=== PATIENT | female | born 1970 ===

== ENCOUNTER 2021-04-20 14:06 | Emergency (ER) | payer BC, MEDICAID ==
--- NOTE | 2021-04-20 14:25 | PCM.EKG ---
#1 Interpretation EKG Date: 04/20/21 Time: 14:12 Rhythm: NSR Rate (Beats/Min): 84 [place]: Normal P-Wave: Present QRS: Normal ST-T: Normal QT: Normal Comparison: NA - No Prior EKG EKG Interpretation Comments: SInus Rhythm
[2021-04-20] MEDS ORDERED: Aspirin 81 MG Tab.Chew PO ONE (14:34)
[2021-04-20] MEDS ORDERED: Morphine 4 MG/ML Syringe IVPUSH ONE ×2 (14:34→18:41)
[2021-04-20] MEDS ORDERED: Sodium Chloride 0.9% 1,000 ML IV ONE (14:34)
--- NOTE | 2021-04-20 14:55 | EDM.PDOC ---
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 Patient states that she has been having chest pain and shortness of breath off and on and states that today it has been constant now for a few hours. Patient states that she also has had a few episodes of what she believes is vaginal bleeding but she states that this only occurs with urination so she has a hard time deciphering where the bleeding is coming from. Patient states that she is confused as she has a hysterectomy. Patient denies placing objects into her vaginal vault or heavy intercourse and states she has not had anything that would have caused vaginal bleeding. Patient states that she is on prednisone daily and will be out of her prescription soon for her rheumatoid arthritis. Patient states her rheumatoid arthritis has affected her vocal cords and she occasionally has to go in and get the surgically adjusted in order to protect her airway according to patient. Patient states that her chest pain and shortness of breath have been more progressive over the past 2 weeks and states that she is now having a difficult time walking from one room to the next without feeling short of breath. Patient states that this is new in the past 2 weeks and prior to this she was not having this issue. Patient denies fever, chills, or cough. Denies headache, neck stiff ness, change in vision, syncope, or near syncope. Denies nausea, vomiting, abdominal pain, diarrhea, constipation, or dysuria. Has not noted any blood in stool. Patient has been eating and drinking appropriately. Review of systems: As per history of present illness and below otherwise all systems reviewed and negative. Past medical history: As per history of present illness and as reviewed below otherwise noncontributory. Surgical history: As per history of present illness and as reviewed below otherwise noncontributory. Social history: See social history for further information Family history: As per history of present illness and as reviewed below otherwise noncontributory. Physical exam: General: Patient is alert, oriented, and in no acute distress. Patient laying comfortably on exam table. Vitals stable and reviewed by me. HEENT: Atraumatic, normocephalic, pupils equal and reactive bilaterally, negative for conjunctival pallor or scleral icterus, mucous membranes moist, TMs normal bilaterally, throat clear, neck supple, nontender, trachea midline. No drooling or trismus noted. No meningeal signs. No hot potato voice noted. Lungs: Mild wheezing of bilateral lower lung ashley to auscultation, breath sounds equal bilaterally, chest nontender. Heart: S1S2, regular rate and rhythm without overt murmur Abdomen: Soft, nondistended, nontender. Negative for masses or hepatosplenomegaly. Negative for costovertebral tenderness. Pelvis: Stable nontender. Genitourinary: [employer] Business Developer at bedside Celine Talavera RN. External genitalia is grossly unremarkable. There is a moderate amount of white vaginal discharge in the vaginal vault. Cervical cuff intact without bleeding or pain. No blood noted in the vaginal vault. Rectal: Deferred. Skin: Intact, warm, dry. No lesions or rashes noted. Extremities: Atraumatic, negative for cords or calf pain. Neurovascular unremarkable. Neuro: Awake, alert, oriented. Cranial nerves II through XII unremarkable. Cerebellum unremarkable. Motor and sensory unremarkable throughout. Exam nonfocal. Notes: Patient is a 51-year-old female who presents emergency room today with concern of shortness of breath and chest pain that has come and go over the past 2 weeks but now has been constant for several hours, an episode of concern for vaginal versus blood in urine bleeding with a history of hysterectomy. Upon arrival to the ED, patient is vitally stable and well-appearing on exam. Will obtain cardiac evaluation. See Dr. Navas's dictation for specific EKG interpretation. However, normal sinus rhythm without STEMI Given that patient is still currently having chest pain, will give a dose of aspirin, nitro and morphine and reassess patient. Due to status of the emergency room, will have to wait to obtain a exam. CBC shows mild leukocytosis of 11.47, otherwise CBC is unremarkable. D-dimer is elevated at 0.63. Will obtain angiography of the chest. CMP mild derangements are unremarkable. Troponin negative. Lipase within normal limits. Urinalysis does show too numerous to count red blood cells with zero white blood cells. Negative leukocyte esterase with negative nitrite. Angiography of chest shows mild bilateral perihilar bronchial wall thickening suggesting bronchitis with no pneumonia identified. No pulmonary embolism identified. Nonacute additional findings as detailed above. All incidental findings of imaging today discussed with patient and the importance to have this followed up with a primary care provider. Patient does have an extensive history of smoking and continues to smoke, so will treat patient today with prednisone and azithromycin. exam shows no vaginal bleeding with intact cuff from hysterectomy. While obtaining exam, patient does have a significant amount of abdominal discomfort with giving positional changes. When discussing this with patient, she states that she has been having increased abdominal pain over the past 2 weeks but did not mention this on HPI as she states that she has had "so many things going on". Will obtain abdominal pelvic CT without contrast at this time. Abdominal pelvic CT scan without contrast shows no acute findings or CT correlate for abdominal pain definitively identified. Contrast opacification throughout the bilateral urinary tracts and bladder residual from earlier same day CT, limiting assessment for ureteral lithiasis. Upon reevaluation of patient, she has improvement of her symptoms with therapeutics given today in the emergency room. Strict return precautions thoroughly discussed with patient. Discussed importance for follow-up with a primary care provider and urologist. Voices understanding and is agreeable to plan of care. Denies any further questions or concerns at this time. Diagnostics: EKG, CBC, CMP, UA, Trop, Ddimer, Lipase, angiography of chest, abdominal pelvic CT without contrast Therapeutics: NS, Nitro, ASA, Morphine Prescription: Azithromycin, prednisone Impression: Bronchitis Hematuria Plan: 1. Take medication as prescribed. You can alternate ibuprofen and Tylenol as directed for pain and discomfort. 2. Follow-up with a primary care provider and urologist as discussed. Return to the ED as needed and as discussed. Definitive disposition and diagnosis as appropriate pending reevaluation and review of above. chest Pain Score (Numeric/FACES): 4 - Related Data Allergies Allergy/AdvReac Type Severity Reaction Status Date / Time No Known Allergies Allergy Verified 04/20/21 14:15 Home Meds: Home Meds Azithromycin 250 mg PO DAILY 5 Days #6 tablet 04/20/21 [Rx] Escitalopram Oxalate [Lexapro] 04/20/21 [History] Furosemide [Lasix] 04/20/21 [History] Ibuprofen 04/20/21 [History] Omeprazole 04/20/21 [History] predniSONE [Prednisone] 04/20/21 [History] predniSONE [Prednisone] 20 mg PO DAILY 5 Days #5 tablet 04/20/21 [Rx] Past Medical History HEENT History: Reports: None Cardiovascular History: Reports: Hypertension Other Respiratory History: layrnx surgery Gastrointestinal History: Reports: None Genitourinary History: Reports: None MAGAZINE EDITOR History: Reports: None Musculoskeletal History: Reports: None Neurological History: Reports: None Psychiatric History: Reports: None Endocrine/Metabolic History: Reports: None Hematologic History: Reports: None Oncologic (Cancer) History: Reports: None Dermatologic History: Reports: None - Infectious Disease History Infectious Disease History: Reports: None - Past Surgical History Head Surgeries/Procedures: Reports: None Social & Family History - Family History Family Medical History: No Pertinent Family History - Tobacco Use Tobacco Use Status *Q: Current Every Day Tobacco User Years of Tobacco use: 33 Packs/Tins Daily: 0.5 - Caffeine Use Caffeine Use: Reports: None - Recreational Drug Use Recreational Drug Use: No ED ROS GENERAL - Review of Systems Review Of Systems: Comprehensive ROS is negative, except as noted in HPI. ED EXAM, GENERAL - Physical Exam Exam: See Below (see dictation) Course - Vital Signs Last Recorded V/S: Last Vital Signs Temp 97.4 F 04/20/21 14:12 Pulse 68 04/20/21 18:03 Resp 17 04/20/21 18:03 BP 174/108 H 04/20/21 18:03 Pulse Ox 95 04/20/21 18:03 - Orders/Labs/Meds Labs: Laboratory Tests 04/20/21 04/20/21 04/20/21 Range/Units 14:37 14:37 14:37 WBC 11.47 H (4.0-11.0) K/uL RBC 4.42 (4.30-5.90) M/uL Hgb 12.8 (12.0-16.0) g/dL Hct 39.4 (36.0-46.0) % MCV 89.1 (80.0-98.0) fL MCH 29.0 (27.0-32.0) pg MCHC 32.5 (31.0-37.0) g/dL RDW Std Deviation 47.4 (28.0-62.0) fl RDW Coeff of Juliette 14 (11.0-15.0) % Plt Count 314 (150-400) K/uL MPV 10.60 (7.40-12.00) fL Neut % (Auto) 44.9 L (48.0-80.0) % Lymph % (Auto) 44.5 H (16.0-40.0) % [place] % (Auto) 8.2 (0.0-15.0) % Eos % (Auto) 1.6 (0.0-7.0) % Baso % (Auto) 0.8 (0.0-1.5) % Neut # (Auto) 5.2 (1.4-5.7) K/uL Lymph # (Auto) 5.1 H (0.6-2.4) K/uL [place] # (Auto) 0.9 H (0.0-0.8) K/uL Eos # (Auto) 0.2 (0.0-0.7) K/uL Baso # (Auto) 0.1 (0.0-0.1) K/uL Nucleated RBC % 0.0 /100WBC Nucleated RBCs # 0 K/uL D-Dimer, Quantitative 0.63 H (0.0-0.50) mg/L FEU Sodium 140 (136-145) mmol/L Potassium 4.4 (3.5-5.1) mmol/L Chloride 104 (98-107) mmol/L Carbon Dioxide 28.5 (21.0-32.0) mmol/L BUN 18 (7.0-18.0) mg/dL Creatinine 0.8 (0.6-1.0) mg/dL Est Cr Clr Drug Dosing 84.99 mL/min Estimated GFR (MDRD) > 60.0 ml/min Glucose 113 H (74-106) mg/dL Calcium 8.5 (8.5-10.1) mg/dL Total Bilirubin 0.1 L (0.2-1.0) mg/dL AST 11 L (15-37) IU/L ALT 17 (14-63) IU/L Alkaline Phosphatase 108 (46-116) U/L Troponin I < 0.050 (0.000-0.056) ng/mL Total Protein 7.1 (6.4-8.2) g/dL Albumin 3.5 (3.4-5.0) g/dL Globulin 3.6 (2.6-4.0) g/dL Albumin/Globulin Ratio 1.0 (0.9-1.6) Lipase 106 (73-393) U/L Urine Color Urine Appearance Urine pH (5.0-8.0) Ur Specific [place] (1.001-1.035) Urine Protein (NEGATIVE) mg/dL Urine Glucose (UA) (NEGATIVE) mg/dL Urine Ketones (NEGATIVE) mg/dL Urine Occult Blood (NEGATIVE) Urine Nitrite (NEGATIVE) Urine Bilirubin (NEGATIVE) Urine Urobilinogen (<2.0) EU/dL Ur Leukocyte Esterase (NEGATIVE) Urine RBC (0-2/HPF) Urine WBC (0-5/HPF) Ur Epithelial Cells (NONE-FEW) Urine Bacteria (NEGATIVE) 04/20/21 Range/Units 16:08 WBC (4.0-11.0) K/uL RBC (4.30-5.90) M/uL Hgb (12.0-16.0) g/dL Hct (36.0-46.0) % MCV (80.0-98.0) fL MCH (27.0-32.0) pg MCHC (31.0-37.0) g/dL RDW Std Deviation (28.0-62.0) fl RDW Coeff of Juliette (11.0-15.0) % Plt Count (150-400) K/uL MPV (7.40-12.00) fL Neut % (Auto) (48.0-80.0) % Lymph % (Auto) (16.0-40.0) % [place] % (Auto) (0.0-15.0) % Eos % (Auto) (0.0-7.0) % Baso % (Auto) (0.0-1.5) % Neut # (Auto) (1.4-5.7) K/uL Lymph # (Auto) (0.6-2.4) K/uL [place] # (Auto) (0.0-0.8) K/uL Eos # (Auto) (0.0-0.7) K/uL Baso # (Auto) (0.0-0.1) K/uL Nucleated RBC % /100WBC Nucleated RBCs # K/uL D-Dimer, Quantitative (0.0-0.50) mg/L FEU Sodium (136-145) mmol/L Potassium (3.5-5.1) mmol/L Chloride (98-107) mmol/L Carbon Dioxide (21.0-32.0) mmol/L BUN (7.0-18.0) mg/dL Creatinine (0.6-1.0) mg/dL Est Cr Clr Drug Dosing mL/min Estimated GFR (MDRD) ml/min Glucose (74-106) mg/dL Calcium (8.5-10.1) mg/dL Total Bilirubin (0.2-1.0) mg/dL AST (15-37) IU/L ALT (14-63) IU/L Alkaline Phosphatase (46-116) U/L Troponin I (0.000-0.056) ng/mL Total Protein (6.4-8.2) g/dL Albumin (3.4-5.0) g/dL Globulin (2.6-4.0) g/dL Albumin/Globulin Ratio (0.9-1.6) Lipase (73-393) U/L Urine Color DARK YELLOW Urine Appearance SLT CLOUDY Urine pH 6.0 (5.0-8.0) Ur Specific [place] 1.020 (1.001-1.035) Urine Protein NEGATIVE (NEGATIVE) mg/dL Urine Glucose (UA) NEGATIVE (NEGATIVE) mg/dL Urine Ketones NEGATIVE (NEGATIVE) mg/dL Urine Occult Blood LARGE H (NEGATIVE) Urine Nitrite NEGATIVE (NEGATIVE) Urine Bilirubin NEGATIVE (NEGATIVE) Urine Urobilinogen 0.2 (<2.0) EU/dL Ur Leukocyte Esterase NEGATIVE (NEGATIVE) Urine RBC TOO NUMEROUS TO CT H (0-2/HPF) Urine WBC 0-2 (0-5/HPF) Ur Epithelial Cells RARE (NONE-FEW) Urine Bacteria NOT SEEN (NEGATIVE) Meds: Medications Discontinued Medications Generic Name Dose Route Start Last Admin Trade Name Freq PRN Reason Stop Dose Admin Aspirin 324 mg 04/20/21 14:34 04/20/21 14:54 Aspirin 81 Mg Tab.Chew PO 04/20/21 14:35 324 mg ONETIME ONE Administration Sodium Chloride 1,000 mls @ 999 mls/hr 04/20/21 14:34 04/20/21 14:54 Normal Saline IV 04/20/21 15:34 999 mls/hr STAT ONE Administration Iopamidol 100 ml 04/20/21 16:22 04/20/21 16:23 Iopamidol 755 Mg/Ml 500 Ml Multipack Bottle IVPUSH 04/20/21 16:23 100 ml ONETIME STA Administration Morphine Sulfate 4 mg 04/20/21 14:34 04/20/21 14:54 Morphine 4 Mg/Ml Syringe IVPUSH 04/20/21 14:35 4 mg ONETIME ONE Administration Morphine Sulfate 4 mg 04/20/21 18:41 04/20/21 18:47 Morphine 4 Mg/Ml Syringe IVPUSH 04/20/21 18:42 4 mg ONETIME ONE Administration Nitroglycerin 0.4 mg 04/20/21 14:34 04/20/21 15:03 Nitroglycerin 0.4 Mg Tab.Sl SL 0.4 mg Q5M PRN Administration Chest Pain Departure - Departure Time of Disposition: 19:59 Disposition: Home, Self-Care 01 Clinical Impression: Bronchitis Hematuria Qualifiers: Hematuria type: unspecified type Qualified Code(s): R31.9 - Hematuria, unspecified - Discharge Information Prescriptions: Azithromycin 250 mg PO DAILY 5 Days #6 tablet predniSONE [Prednisone] 20 mg PO DAILY 5 Days #5 tablet Instructions: Acute Bronchitis, Adult Referrals: PCP,Not In Area [Primary Care Provider] - Forms: ED Department Discharge Additional Instructions: The following information is given to patients seen in the emergency department who are being discharged to home. This information is to outline your options for follow-up care. We provide all patients seen in our emergency department with a follow-up referral. The need for follow-up, as well as the timing and circumstances, are variable depending upon the specifics of your emergency department visit. If you don't have a primary care physician on staff, we will provide you with a referral. We always advise you to contact your personal physician following an emergency department visit to inform them of the circumstance of the visit and for follow-up with them and/or the need for any referrals to a consulting specialist. The emergency department will also refer you to a specialist when appropriate. This referral assures that you have the opportunity for follow-up care with a specialist. All of these measure are taken in an effort to provide you with optimal care, which includes your follow-up. Under all circumstances we always encourage you to contact your private physician who remains a resource for coordinating your care. When calling for follow-up care, please make the office aware that this follow-up is from your recent emergency room visit. If for any reason you are refused follow-up, please contact the [facility] Emergency Department at and asked to speak to the emergency department charge nurse. [facility] [address] [place] [address] [facility] [address] [place] [address] Mandy Pope DO, FACOS, Urology [address] [address], 5th floor 1. Take medication as prescribed. You can alternate ibuprofen and Tylenol as directed for pain and discomfort. 2. Follow-up with a primary care provider and urologist as discussed. Return to the ED as needed and as discussed. Sepsis Event Note (ED) - Evaluation Sepsis Screening Result: No Definite Risk - Focused Exam Vital Signs: Vital Signs Temp Pulse Resp BP BP Pulse Ox 04/20/21 18:03 68 17 174/108 H 95 04/20/21 15:11 76 17 124/64 96 04/20/21 15:07 74 17 124/61 04/20/21 15:03 133/55 L 04/20/21 15:02 74 17 133/55 L 98 04/20/21 14:56 139/39 L 04/20/21 14:12 97.4 F 82 18 164/107 H 98
[2021-04-20] MEDS: Nitroglycerin 0.4 MG Tab.SL SL PRN ×2 (14:56→15:03)
[2021-04-20 15:12] LABS: BLOOD UREA NITROGEN,BUN 18 mg/dL (7.0-18.0); CARBON DIOXIDE,CO2 28.5 mmol/L (21.0-32.0); CHLORIDE,CL 104 mmol/L (98-107); GLUCOSE RANDOM 113 mg/dL (74-106); LIPASE 106 U/L (73-393); POTASSIUM,K 4.4 mmol/L (3.5-5.1); SODIUM,NA 140 mmol/L (136-145)
[2021-04-20] MEDS ORDERED: Iopamidol 755 MG/ML 500 ML Multipack Bottle IVPUSH STA (16:22)
--- NOTE | 2021-04-20 17:18 | CT ---
INDICATION: Shortness of breath. Chest pain. Elevated D-dimer. Evaluate for pulmonary embolism. CT CHEST WITH CONTRAST TECHNIQUE: Multidetector CT imaging was performed through the chest following intravenous contrast administration using 100 mL Isovue 370. Coronal and sagittal reconstructions were generated. COMPARISON: None. FINDINGS: Lungs and airways: Scattered small areas of mild subpleural paraseptal emphysema in the upper lungs. Mild bibasilar atelectatic changes. No pulmonary consolidation identified. Mild bilateral perihilar bronchial wall thickening suggesting bronchitis. Central airways are patent. Pleura and pleural spaces: No pleural effusions or pneumothorax. Heart and mediastinum: Normal heart size. No significant pericardial effusion. Several scattered upper normal sized mediastinal lymph nodes. No pathologically enlarged mediastinal lymph nodes identified. Vascular structures: No filling defects in the pulmonary arterial tree to suggest pulmonary emboli. Normal caliber thoracic aorta. Chest wall and axillae: No mass or axillary lymphadenopathy. Osseous structures: Minor spinal degenerative changes. No acute fractures identified. Upper abdomen: Small hiatal hernia. Diverticulosis of the splenic flexure of the colon. IMPRESSION: 1. Mild bilateral parahilar bronchial wall thickening suggesting bronchitis. No definite pneumonia identified. 2. No pulmonary emboli identified. 3. Nonacute additional findings as detailed above. KATERINE SANON MD [employer] Dictated by Adama Sanon MD @ 04/20/2021 5:11:20 PM Please note that all CT scans at this facility use dose modulation, iterative reconstruction, and/or weight-based dosing when appropriate to reduce radiation dose to as low as reasonably achievable. Dictated by: Adama Sanon MD @ 04/20/2021 17:17:15 (Electronically Signed)
--- NOTE | 2021-04-20 19:57 | CT ---
INDICATION: Lower abdominal pain, hematuria. TECHNIQUE: CT abdomen and pelvis without intravenous contrast. Coronal and sagittal reformats. COMPARISON: Earlier same day chest CT. FINDINGS: The imaged lower chest is unremarkable. The unenhanced liver, gallbladder, pancreas, spleen, and right adrenal are unremarkable. Mild left adrenal nodular thickening. Symmetric renal size. Contrast opacification throughout the bilateral urinary tracts and bladder, residual from earlier same day CT. No hydronephrosis or suspicious filling defect identified bilaterally. Unremarkable urinary bladder. Mild scattered colonic diverticulosis. The bowel appears normal in caliber and thickness diffusely. Normal appendix. No free air, free fluid, focal collection, or lymphadenopathy. Normal caliber abdominal aorta with mild atherosclerotic calcification. No suspicious osseous lesion. IMPRESSION: 1. No acute findings or CT correlate for abdominal pain definitively identified. 2. Contrast opacification throughout the bilateral urinary tracts and bladder, residual from earlier same day CT, limiting assessment for urolithiasis. Dictated by Ventura Alfaro MD @ 04/20/2021 7:56:10 PM Please note that all CT scans at this facility use dose modulation, iterative reconstruction, and/or weight-based dosing when appropriate to reduce radiation dose to as low as reasonably achievable. Dictated by: Ventura Alfaro MD @ 04/20/2021 19:56:17 (Electronically Signed)
== END 2021-04-20 20:09 | disposition home or self-care (01) ==
LOC: MW.ED 14:06
DX: J40 Bronchitis, not specified as acute or chronic (principal); R31.9 Hematuria, unspecified; I10 Essential (primary) hypertension; Z72.0 Tobacco use; Z79.899 Other long term (current) drug therapy
CPT/HCPCS: 36415; 71275; 74176; 80053; 81001; 83690; 84484; 85025; 85379; 93005; 96374; 96376; 99285; A9270; J2270; J7030; Q9967; 93010; 99284